=== PATIENT | male | born 1970 | race Caucasian/White ===

== ENCOUNTER 2017-09-29 01:02 | Emergency (ER) | payer OTHER ==
[2017-09-29] MEDS ORDERED: NS 1,000 ML IV ONE (01:25)
[2017-09-29] MEDS ORDERED: LORazepam 2 MG/ML INJ IVP ONE ×3 (01:25→01:43)
--- NOTE | 2017-09-29 01:36 | EDPHY ---
H & P Time Seen by Provider: 09/29/17 01:13 HPI/ROS: CHIEF COMPLAINT: Shortness of breath, racing heart HISTORY OF PRESENT ILLNESS: Patient presents with racing heart and shortness of breath. He states it started when he was riding home from work in over vehicle. He states like he feels he"can not breathe". But denies chest pain. Per his he has had"panic attacks"before but never this bad. Patient does admit to using both alcohol and cocaine tonight prior to onset of symptoms. He states he rarely uses either. He does admit to stress at his job but states he did not have a particularly stressful day. Did have a few drinks to relieve stress however. Denies any trauma or assault. Denies any recent illnesses. [place] fine all day prior to this episode. Complaining of numbness to hands and feet. No nausea, vomiting, diarrhea. No abdominal pain. No pain anywhere. REVIEW OF SYSTEMS: Constitutional: No fever, no chills. Eyes: No discharge. ENT: No sore throat. Cardiovascular: No chest pain, no palpitations. Respiratory: No cough, shortness of breath present Gastrointestinal: No abdominal pain, no vomiting. Genitourinary: No dysuria. Musculoskeletal: No back pain. Skin: No rashes. Neurological: No headache. General Appearance: Alert, anxious, hyperventilating Eyes: Pupils equal and round no pallor or injection. ENT, Mouth: Mucous membranes moist. Respiratory: There are no retractions, lungs are clear to auscultation. Cardiovascular: Tachycardic, regular. Femoral pulses equal bilaterally. Gastrointestinal: Abdomen is soft and nontender, no masses, bowel sounds normal. Neurological: Awake and alert no focal neurologic deficits. Skin: Warm and dry, no rashes. Musculoskeletal: Neck is supple nontender. Extremities are symmetrical, full range of motion, no edema. Psychiatric: Patient is oriented X 3, there is no agitation. Medical/surgical history: Denies. No family history of heart disease. Social history: Occasional smoker, occasional but rare alcohol. Smoking Status: Former smoker Constitutional: Initial Vital Signs Temperature (C) 36.8 C 09/29/17 01:05 Heart Rate 152 H 09/29/17 01:05 Respiratory Rate 30 H 09/29/17 01:05 Blood Pressure 146/92 H 09/29/17 01:05 O2 Sat (%) 99 09/29/17 01:05 O2 Delivery Mode Room Air Allergies/Adverse Reactions: No Known Allergies Allergy (Unverified 01/25/14 09:42) Home Medications: Medication Instructions Recorded NK [No Known Home Meds] 11/06/15 Medical Decision Making - Diagnostics EKG Interpretation: EKG shows sinus tachycardia with a rate of 147. Normal axis. Prolonged QT interval noted. No acute ST T-wave changes to suggest ischemia or infarct. ED Course/Re-evaluation: 2:15 a.m. Re-evaluation shows patient feeling better, no longer short of breath. Heart rate under 100. Pulse ox 95% on room air. Differential Diagnosis: Differential diagnosis includes but is not limited to SVT, hyperventilation syndrome, acute coronary syndrome, panic attack, cocaine abuse, alcohol intoxication. After evaluation suspect panic attack exacerbated by cocaine and alcohol use tonight. Patient denies chest pain at any time. He has no prior history of heart disease or family history and EKG and troponin in the emergency department reassuring. Re-evaluation shows him improved. Regretting his choices tonight. No suspicion of chronic drug or alcohol use or need for detox. Ultimately feeling better and requesting to go home. Stable for discharge. - Data Points Laboratory Results: 09/29/17 01:41 POC Troponin I 0.00 ng/mL ng/mL (0.00-0.08) Medications Given: Discontinued Medications Sodium Chloride (Ns) 1,000 mls @ 0 mls/hr IV ONCE ONE; Wide Open PRN Reason: Protocol Stop: 09/29/17 01:26 Last Admin: 09/29/17 01:30 Dose: 1,000 mls Lorazepam (Ativan Injection) 1 mg IVP EDNOW ONE Stop: 09/29/17 01:26 Last Admin: 09/29/17 01:46 Dose: Not Given Lorazepam (Ativan Injection) 1 mg IVP EDNOW ONE Stop: 09/29/17 01:31 Last Admin: 09/29/17 01:46 Dose: Not Given Lorazepam (Ativan Injection) 2 mg IVP EDNOW ONE Stop: 09/29/17 01:44 Last Admin: 09/29/17 01:45 Dose: 1.5 mg Point of Care Test Results: Chemistry 09/29/17 01:41 POC Troponin I 0.00 ng/mL ng/mL (0.00-0.08) Departure - Departure Clinical Impression: Panic attack Condition: Good Instructions: Panic Disorder (ED) Additional Instructions: Avoid using drugs and alcohol in the future. Stay well hydrated over the next 12-24 hours. If you develop chest pain or return of severe symptoms return to the emergency department. Referrals: Patient,NotPresent [Primary Care Provider] - As per Instructions Homer Cruz MD [[facility] [place] Primary Care Provider] - As per Instructions
[2017-09-29 02:50] VITALS: BP 124/85
--- NOTE | 2017-09-29 02:50 | CPEKG ---
Test Reason : OPEN Blood Pressure : / mmHG Vent. Rate : 147 BPM Atrial Rate : 147 BPM P-R Int : 105 ms QRS Dur : 093 ms QT Int : 338 ms P-R-T Axes : 084 089 -54 degrees QTc Int : 529 ms Sinus tachycardia Probable inferior infarct, old Prolonged QT interval Confirmed by Jesenia Cabral ([id number]) on 09/29/2017 2:50:17 AM Referred By: Confirmed By:Jesenia Cabral
== END 2017-09-29 03:00 | disposition home or self-care (01) ==
LOC: CED 01:02
DX: F41.0 Panic disorder [episodic paroxysmal anxiety] (principal); E86.9 Volume depletion, unspecified; Z87.891 Personal history of nicotine dependence
CPT/HCPCS: 84484-PO; 96374; J2060